=== PATIENT | female | born 1975 | race Caucasian/White ===

== ENCOUNTER 2019-03-21 09:54 | Emergency (ER) | payer BC ==
--- NOTE | 2019-03-21 10:02 | PDOC ---
History of Present Illness - General Chief Complaint: Injury Stated Complaint: RIGHT KNEE INJURY Time Seen by Provider: 03/21/19 10:02 History Source: Patient Exam Limitations: No Limitations - History of Present Illness Initial Comments: 43 year old female with PMH ovarian cysts presented to ED for right knee pain s/ p fall x2 days ago. Pt reported she was running, went to climb over a retaining wall and then accidentally fell forwards, slamming her right knee into the ground. Pt reported yesterday she had the knee elevated with ice, took Motrin, and while her pain is improved today, she still feels her knee is unstable when she walks, prompting her to come to the ED. Pt denied head injury, LOC, vomiting , chest pain, back pain, hip pain, ankle pain, wrist pain, elbow pain, abdominal pain, neck pain, headache. She reported she feels her pain is radiating up her leg. ROS General: denied fever, chills, generalized weakness. HEENT: denied sore throat, rhinorrhea, ear pain. Cardiovascular: denied chest pain, palpitations, syncope, diaphoresis. Respiratory: denied shortness of breath, cough, sputum production, hemoptysis. Gastrointestinal: denied abdominal pain, nausea, vomiting, diarrhea, constipation, blood in stool. Genitourinary: denied dysuria, increased urinary frequency, hematuria, urinary incontinence, flank pain. Back: denied back pain. Musculoskeletal: admitted to knee pain. Neurological: denied headache, dizziness, numbness, tingling, weakness. Integumentary: denied rash, laceration, abrasion. Hematologic/Lymphatic: denied bruising or bleeding. PE Constitutional: Well-nourished, Well-developed, appearing stated age. HEENT: head is normocephalic, atraumatic. EOMI. PERRLA. Neck: supple. Full ROM. Cardiovascular: regular heart rhythm. no murmurs. no pericardial friction rub. Respiratory: clear to auscultation bilaterally. no crackles, rhonchi or wheezing. no stridor. Gastrointestinal: soft, nontender. normal bowel sounds. no rebound, guarding, masses. Extremities: peripheral pulses intact. no lower extremity edema. Right LE: knee swollen. tender to lateral aspect of knee. positive valgus stress test. negative anterior drawer test, negative posterior drawer test. negative varus stress testing. no tenderness along aspect of right femur. Neurological: CN 2-12 grossly intact. moves all four extremities. Psych: awake, alert, oriented x3. follows commands. answers questions appropriately. Past History - Past Medical History Allergies/Adverse Reactions: Allergies Allergy/AdvReac Type Severity Reaction Status Date / Time Penicillins Allergy Unknown Verified 03/21/19 10:00 Home Medications: Ambulatory Orders Alprazolam [Xanax] 0.5 mg PO DAILY PRN 03/21/19 Citalopram Hydrobromide [Citalopram HBr] 20 mg PO DAILY 03/21/19 Medical Decision Making - Medical Decision Making 43 year old female with above PMH presented to ED for right knee pain s/p mechanical fall yesterday. Initial Vital Signs Temp Pulse Resp BP Pulse Ox 98.9 F 73 16 143/87 99 03/21/19 09:55 03/21/19 09:55 03/21/19 09:55 03/21/19 09:55 03/21/19 09:55 Afebrile. No tachycardia. No tachypnea. Hypertensive. No hypoxia on room air. Labs ordered: none Imaging ordered: R knee XR, R femur XR -Pt reported she has IUD and is not Medications ordered: ibuprofen 600 mg PO once 03/21/19 11:27 Knee XR report: Name: [facility] Phys: Lucila Santos MD : 1975 Age: 43 Sex: F [facility] Acct: [id number] Loc: [address] Exam Date: 03/21/19 Status: [place] [address] Unit Number: [id number] EXAM #: TYPE/EXAM: RESULT: [id number] RAD/KNEE 3 POS-RIGHT Right knee: Pain. 2 views of the right knee reveal arthritic changes but no sign of fracture or subluxation and no sign of blastic or lytic findings. If symptoms persist, further imaging may be of help. Reported By: Ernst Funk MD 03/21/19 1059 Femur XR report: Name: [facility] Phys: Lucila Santos MD : 1975 Age: 43 Sex: F [facility] Acct: [id number] Loc: [facility] [address] Exam Date: 03/21/19 Status: [place] [address] Unit Number: [id number] EXAM #: TYPE/EXAM: RESULT: [id number] RAD/FEMUR-RIGHT Right femur: Pain. Injury. 4 views of the right femur have been submitted. There is no sign of fracture or subluxation and no sign of blastic or lytic changes. There are some minimal arthritic changes in the knee and hip joints. If symptoms persist, further imaging may be of help. Impression: No acute pathology. Reported By: Ernst Funk MD 03/21/19 1055 Pt placed in knee immobilizer, given ortho referral, advised to take NSAIDs for pain control/rest/ice/elevate, return precautions. Pt discharged. Discharge - Discharge Information Problems reviewed: Yes Clinical Impression/Diagnosis: Knee pain Condition: Stable Disposition: HOME - Admission No - Follow up/Referral Referrals: Brent Dickerson MD [Staff Physician] - - Patient Discharge Instructions Patient Printed Discharge Instructions: Knee Sprain Additional Instructions: YOU SHOULD ICE AND ELEVATE YOUR KNEE TO ALLEVIATE SWELLING. YOU CAN TAKE IBUPROFEN 600 MG EVERY 8 HOURS NEEDED FOR PAIN. YOU SHOULD WEAR KNEE IMMOBLIZER FOR SUPPORT AND COMFORT. CALL TO FOLLOW UP WITH ORTHOPEDIST. YOU CAN SEE DR DICKERSON . SEE REFERRAL INFORMATION TO SCHEDULE APPOINTMENT. RETURN FOR ANY PROBLEMS OR CONCERNS. YOUR XRAYS WERE NEGATIVE FOR ANY INJURY TO THE BONES, IT IS LIKELY INJURY TO THE SOFT TISSUE SUPPORTING THE JOINT. - Post Discharge Activity Work/Back to School Note: Back to Work
[2019-03-21 10:18] VITALS: BP 143/87; PULSE 73; TEMP 98.9; BMI 32.1
[2019-03-21] MEDS ORDERED: IBUPROFEN 600 MG TABLET (FP) PO ONE ×2 (10:23→10:45)
--- NOTE | 2019-03-21 11:03 | PDOC ---
Attending Attestation - Resident Resident Name: Caprice Diaz - ED Attending Attestation I have performed the following: I have examined & evaluated the patient, The case was reviewed & discussed with the resident, I agree w/resident's findings & plan, Exceptions are as noted - HPI HPI: 03/21/19 11:01 43-year-old female no significant past medical history here today with a right knee injury. Patient states she had a fall 2 days ago while climbing a retaining wall landing on a flexed knee complaining of right knee pain. She states overall the pain is much improved today than yesterday happened on 19 March. She has been taking Motrin for pain ambulates with difficulty and does have pain with bending denies any hip or ankle pain but does have lower thigh pain. Did not hit her head when she fell no other complaints of any bony injuries or other significant pain.Last Motrin she took was at 2 AM - Physicial Exam PE: 03/21/19 11:01 Awake alert no acute distress head is atraumatic. Lungs are clear bilaterally heart is regular for murmurs rubs or gallops abdomen is soft nontender extremities are noted for right knee tenderness on flexion and extension. There is lateral tenderness to the knee no significant effusion or ecchymosis noted. Negative anterior posterior drawer sign she does have pain with Silva' s. Ankles full range of motion nontender no bony deformities. Hip is nontender full range of motion. All other extremities are atraumatic patient has a GCS of 15 Skin is warm and dry and intact - Medical Decision Making 03/21/19 11:03 43-year-old female status post right knee injury. Plan x-rays to rule out any bony injuries likely ligamentous. We will give her Motrin for her pain if x- rays are negative likely knee immobilizer discharge and follow-up with orthopedics. X-ray of the right knee and femur does show no acute bony fractures patient was placed in the immobilizer will be discharged follow-up given for Dr. Austin
== END 2019-03-21 11:26 | disposition home or self-care (01) ==
LOC: FER 09:54
PROC: 2W3QX1Z Immobilization of Right Lower Leg using Splint (ICD-10-PCS; principal; 2019-03-21)
DX: S83.91XA Sprain of unspecified site of right knee, initial encounter (principal); W13.8XXA Fall from, out of or through other building or structure, initial encounter; Y93.01 Activity, walking, marching and hiking; Y92.89 Other specified places as the place of occurrence of the external cause; Z88.0 Allergy status to penicillin
CPT/HCPCS: 73552-TC-RT-FY; 73562-TC-RT-FY; 99282-25